=== PATIENT | female | born 1960 | race Two or more races ===

== ENCOUNTER 2024-02-25 12:28 | Emergency (ER) | payer MEDICAID ==
[~2024-02-25] VITALS: Ht 160 cm; Wt 72.6 kg
[2024-02-25 12:49] VITALS: BP 149/90; TEMP 98.4
[2024-02-25] MEDS: TDAP [DIPH/PERTUSSIS/TET] 0.5 ML VIAL IM ONE (13:30)
[2024-02-25] MEDS ORDERED: AMOX-430 PO (14:18)
[2024-02-25 14:29] VITALS: O2SAT 98
== END 2024-02-25 14:30 | disposition home or self-care (01) ==
LOC: ER 12:44
DX: S71.132A Puncture wound without foreign body, left thigh, initial encounter (principal); I10 Essential (primary) hypertension; E78.5 Hyperlipidemia, unspecified; Z59.00 Homelessness unspecified; W54.0XXA Bitten by dog, initial encounter; Y93.89 Activity, other specified; Y92.89 Other specified places as the place of occurrence of the external cause; Y99.8 Other external cause status
CPT/HCPCS: 90715

== ENCOUNTER 2024-03-08 12:10 | Emergency (ER) | payer MEDICAID ==
[~2024-03-08] VITALS: Ht 160 cm; Wt 72.6 kg
[~2024-03-08 12:10] MED LIST: AMOX-430 PO
[2024-03-08 14:50] LABS: BASOPHILS % (AUTO) 0.6 % (0.0-2.0); EOSINOPHILS # (AUTO) 0.1 K/uL (0.0-0.7); EOSINOPHILS % (AUTO) 1.7 % (0.0-6.0); HEMATOCRIT 33 % (33-45); HEMOGLOBIN 11.7 g/dL (11.5-14.8); LYMPHOCYTES # (AUTO) 1.6 K/uL (0.8-4.8); LYMPHOCYTES % (AUTO) 20.5 % (20.0-44.0); MEAN CORPUSCULAR HEMOGLOBIN 31 PG (26.0-33.0); MEAN CORPUSCULAR HGB CONC 35 g/dl (31.0-36.0); MEAN CORPUSCULAR VOLUME 89 fL (82-100); MONOCYTES # (AUTO) 0.6 K/uL (0.1-1.30); MONOCYTES % (AUTO) 8.2 % (2.0-12.0); NEUTROPHILS # (AUTO) 5.3 K/uL (1.8-8.9); PLATELET COUNT (AUTO) 312 K/uL (150-450); RED BLOOD CELL COUNT(AUTO) 3.75 MIL/uL (4.0-5.2); RED CELL DISTRIBUTION WIDTH 13.1 % (11.5-15.0); WHITE BLOOD COUNT (AUTO) 7.7 K/uL (4.3-11.0)
[2024-03-08 14:58] LABS: CALCIUM, SERUM 9.1 mg/dL (8.5-10.1); CREATININE 0.6 mg/dL (0.6-1.3); POTASSIUM 4.3 mmol/L (3.5-5.1)
[2024-03-08 15:07] LABS: PARTIAL THROMBOPLASTIN TIME 26.8 SEC (24.3-34.3); PROTHROMBIN TIME 10.6 SECS (9.2-11.1)
[2024-03-08] MEDS ORDERED: IV NS 0.9% 250 ML IV ONE (15:22)
[2024-03-08] MEDS ORDERED: IOHEXOL-300 100 ML VIAL IV ONE (15:22)
[2024-03-08] MEDS ORDERED: CT SWABBABLE VALVE TRANS SET 1 EA INFUS.SET MC ONE (15:22)
[2024-03-08] MEDS ORDERED: LIDOCAINE 1%-EPI 1:100,000 20 ML VIAL ONE (17:45)
[2024-03-08] MEDS: AMOX/CLAVULANATE 875 MG TABLET PO ONE (18:00)
[2024-03-08] MEDS ORDERED: AMOX/CLAVULANATE 875 MG TABLET ONE (18:01)
[2024-03-08] MEDS: LIDOCAINE 1%-EPI 1:100,000 20 ML VIAL TP ONE (18:08)
[2024-03-08] MEDS ORDERED: AMOX-430 PO (18:35)
[2024-03-08 19:18] VITALS: BP 125/81; TEMP 98; O2SAT 99
== END 2024-03-08 19:18 | disposition home or self-care (01) ==
LOC: ER 12:16
DX: S70.12XA Contusion of left thigh, initial encounter (principal); S71.152A Open bite, left thigh, initial encounter; I10 Essential (primary) hypertension; E78.00 Pure hypercholesterolemia, unspecified; W54.0XXA Bitten by dog, initial encounter; Y93.89 Activity, other specified; Y92.89 Other specified places as the place of occurrence of the external cause; Y99.8 Other external cause status
CPT/HCPCS: 10140; 99285; 73701; 85025; 80048; 87040; 36415; 85730; J7050; A6403; J3490; Q9967